=== PATIENT | female | born 1955 | race American Indian/Alaskan Native ===

== ENCOUNTER 2017-06-20 06:06 | Day surgery (SDC) | payer BC ==
[~2017-06-20 06:06] MED LIST: TETRACAINE 0.5% OD PRN
[2017-06-20] MEDS ORDERED: NACL BACTERIOSTATIC INFILTRATI ONE (06:18)
[2017-06-20] MEDS: MYDRIACYL OD SCH ×3 (06:45→06:55)
[2017-06-20] MEDS: VIGAMOX OD SCH ×3 (06:45→06:55)
[2017-06-20] MEDS: AK-Dilate OD SCH ×3 (06:45→06:55)
--- NOTE | 2017-06-20 07:08 | Anesthesia Consultation ---
Anesthesia Consult and Med Hx Date of service: 06/20/17 - Airway Anesthetic Teeth Evaluation: Good ROM Head & Neck: Adequate Mental/Hyoid Distance: Adequate Mallampati Class: Class I Intubation Access Assessment: Good - Pulmonary Exam CTA: Yes - Cardiac Exam Cardiac Exam: RRR - Pre-Operative Health Status ASA Pre-Surgery Classification: ASA3 Proposed Anesthetic Plan: MAC - Central Nervous System Hx Psychiatric Problems: No - Endocrine Hx Non-Insulin Dependent Diabetes: Yes - Other Systems Hx Alcohol Use: No Hx Substance Use: No Hx Cancer: No
--- NOTE | 2017-06-20 07:09 | Anesthesia Day of Surgery ---
Anesthesia Day of Surgery - Day of Surgery Patient Examined: Yes Patient H&P Reviewed: Yes Patient is NPO: Yes Beta Blockers: No
[2017-06-20] MEDS ORDERED: VERSED ONE (07:38)
[2017-06-20] MEDS ORDERED: PRED FORTE 1% ONE (07:43)
[2017-06-20] MEDS ORDERED: VISCOAT IO ONE ×3 (07:58→14:47)
[2017-06-20] MEDS ORDERED: ADRENALINE P/F IV ONE (08:08)
[2017-06-20] MEDS ORDERED: XYLOCAINE 1% MPF 5 mL IJ ONE (08:21)
[2017-06-20] MEDS ORDERED: MIOSTAT OD ONE (08:23)
--- NOTE | 2017-06-20 09:03 | Short Stay Summary ---
Short Stay Documentation Date of service: 06/20/17 - History H&P: obtained from office - Allergies and Medications Current Medications: Allergies No Known Allergies Allergy (Verified 06/17/17 13:22) Home Medications Medication Instructions Recorded Confirmed Last Taken Type Dulaglutide [Trulicity] 1 syr IM QWEEK 06/17/17 06/20/17 06/17/17 History Pioglitazone HCl 15 mg PO DAILY 06/17/17 06/20/17 06/19/17 History Active Medications Acetazolamide (Diamox) 500 mg PO BID ONE Stop: 06/20/17 09:01 Moxifloxacin HCl (Vigamox) 1 drops OD Q5MIN [facility] Stop: 06/22/17 06:01 Last Admin: 06/20/17 06:55 Dose: 1 drops Phenylephrine HCl (Ak-Dilate) 1 drops OD Q5MIN [facility] Stop: 06/22/17 06:01 Last Admin: 06/20/17 06:55 Dose: 1 drops Tetracaine HCl (Tetracaine 0.5%) 1 drops OD Q5M PRN PRN Reason: Analgesia Last Admin: 06/20/17 06:45 Dose: 1 drops Tropicamide (Mydriacyl) 1 drops OD Q5MIN [facility] Stop: 06/22/17 06:01 Last Admin: 06/20/17 06:55 Dose: 1 drops - Brief post op/procedure progress note Date of procedure: 06/20/17 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
[2017-06-20] MEDS ORDERED: DIAMOX PO ONE (09:30)
--- NOTE | 2017-06-20 09:39 | Operative Report ---
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 ANESTHESIA: Monitored anesthesia care in combination with topical and intracameral anesthesia because of the established specific risk of reflux, arrhythmias, or anxiety attacks associated with ocular manipulation, as well as the difficulty of the machine tool electrician to manage such potentially catastrophic events while simultaneously attempting to complete the surgical procedure and was deemed necessary for the patient's safety to have a Nurse Records Tech present during the procedure whenever possible. A Nurse Records Tech was utilized to regulate the intravenous sedation of the patient so the patient was cooperative yet not asleep in order for the patient to successfully maintain fixation of the eye on the operating light of the microscope. COMPLICATIONS: Posterior capsular rupture No blood loss. ALLERGIES: No known drug allergies PROGNOSIS: Excellent INDICATIONS FOR SURGERY: The patient is undergoing surgery in the hopes of eliminating or improving these visual difficulties. PROCEDURE: After arriving at the surgery center, the patient was given topical anesthetic and dilating drops, as noted in the record. The patient was then taken into the operating room and given more anesthetic drops. The eyelids , lashes, and lid margins were scrubbed with Betadine solution, and the patient was draped. The Nurse Records Tech administered IV sedation and monitored the patient during the procedure. A speculum was placed between the eyelids, and the patient was asked to fixate on the light of the microscope. The eye was then fixated with a round campuzano, which would damage the conjunctival tissues or vessel, and a stab incision was made in the peripheral clear cornea into the anterior chamber. This was made on my left side. Next through this incision, 1% nonpreserved Xylocaine was irrigated in to the eye to provide further anesthesia. Viscoelastic was next used to fill the anterior chamber. The eye was once again fixated with the round campuzano and a keratome was used make an incision in clear cornea peripherally on my right hand side temporally. Viscoat was first injected into the anterior chamber coating the posterior surface of the cornea. Provisc was then injected between the anterior capsule and the Viscoat. This pushed the Viscoat completely against the endothelium and into the angular area. The Provisc will come out as the phacoemulsification starts, but the Viscoat will remain in place during the procedure to protect the endothelium and the cornea. The capsule forceps were used to open the central anterior capsule and then make a continuous round capsulotomy. Hydrodissection was carried out utilizing a U-shaped cannula and balanced salt solution to delineate the cortical material from the capsule and the nucleus from the cortical material. The phaco tip was introduced into the eye and used to remove the anterior cortical material in the area of the capsulotomy. Then the phaco tip was buried into the nucleus, and a chopping instrument was introduced into the eye and used to provide countertraction in the nucleus between this instrument and the phaco tip fracturing the nucleus. This procedure was repeated multiple times, providing multiple small segments of the lens, and then the phaco tip was used to remove each of these segments. Due to a small pupil size, it was deemed necessary to dilate the pupil mechanically so that the surgery could be more safely and effectively carried out. A Malugyan ring was brought into the operative field and it was inserted into the keratome incision. The pupil remained dilated and the surgery was able to be carried out. Due to poor dilation, iris retractors were used to stretch the pupil into a more dilated position. S The anterior chamber was refilled with viscoelastic. An I/A tip was then used to remove the remaining cortex. Vitreous protruded through the pupil after removing the cataract. Therefore, a mechanical vitrectomy was indicated. An approach consistent with the surgery was performed utilizing a vitrectomy unit and a continuous infusion of balanced salt solution. The vitrectomy was performed carefully to avoid placing undue traction on the retina. As much vitreous was removed as possible with this approach. The vitreous base along the retinal surface, especially in the areas with scleral folds indenting towards the interior of the eye, was left intact. Vitreous was removed from the pupillary margin and cleaned off of the anterior surface of the iris. It was decided that instead of placing the lens in the capsular bag, the lens would be placed into the eye with the haptics anterior to the capsular bag and in the ciliary sulcus. Once it was determined that both haptics were properly positioned, the lens optic was pushed posteriorly to allow capture of the optic by the anterior capsulotomy. This capture provides better fixation and centration of the lens than placement in the sulcus alone. After placement of the intraocular lens, the I and A handpiece was placed back into the eye and used to remove the viscoelastic, including viscoelastic that was behind the optic of the intraocular lens. The anterior chamber was then filled with balanced salt solution, and hydration of the wound was used to cause swelling of the wound and more appropriate watertight closure. When the wound was found to be firm, the patient was asked to comment on how bright the light was. If there was no light perception at all or if the light was substantially dimmer than during the rest of the surgery, the amount of fluid in the eye was decompressed to lower the intraocular pressure until the patient could see the bright light again. This was done to avoid any damage or decreased blood flow to the optic nerve. In order to provide constriction of the pupil and improved vision, Carbachol was injected into the anterior chamber to constrict the pupil. MEDICATIONS APPLIED AT END OF SURGERY: Vigamox and pred forte The patient was given a shield to wear at night and was instructed not to rub or push on the eye. DISCHARGE SUMMARY: The patient was released in stable condition. The patient and those with the patient were given a written sheet of postoperative instructions and counseling on any abnormal laboratory studies. The patient is to see us tomorrow for follow-up in the office and is to call immediately for any difficulties. The patient was given prescriptions for Keflex, Pred Forte, Tylenol No. 3, and Zymar. Merna Dacosta M.D. Date
[2017-06-20] MEDS ORDERED: HumuLIN R IV ONE ×2 (09:45→10:40)
[2017-06-20] MEDS ORDERED: PRED FORTE 1% OD SCH (10:00)
[2017-06-20 10:10] VITALS: BP 165/76
[2017-06-20] MEDS ORDERED: XYLOCAINE MPF 1% INFILTRATI ONE (14:47)
[2017-06-20] MEDS ORDERED: ADRENALIN ONE (14:47)
[2017-06-20] MEDS ORDERED: MIOSTAT ONE (14:47)
== END 2017-06-20 06:07 | disposition home or self-care (01) ==
LOC: OR 06:06
DX: E11.36 Type 2 diabetes mellitus with diabetic cataract (principal); I10 Essential (primary) hypertension; Z91.040 Latex allergy status; Z79.84 Long term (current) use of oral hypoglycemic drugs
CPT/HCPCS: 66982; 67010; 82962; J0171; J2250; J1815; V2632

== ENCOUNTER 2017-07-04 06:40 | Day surgery (SDC) | payer BC ==
[~2017-07-04 06:40] MED LIST changes: -TETRACAINE 0.5% OD PRN; +TETRACAINE 0.5% OS SCH
[2017-07-04] MEDS: MYDRIACYL OS SCH ×3 (07:51→08:07)
[2017-07-04] MEDS: VIGAMOX OS SCH ×3 (07:51→08:07)
[2017-07-04] MEDS: AK-Dilate OS SCH ×3 (07:51→08:06)
--- NOTE | 2017-07-04 07:54 | Anesthesia Day of Surgery ---
Anesthesia Day of Surgery - Day of Surgery Patient Examined: Yes Patient H&P Reviewed: Yes Patient is NPO: Yes
--- NOTE | 2017-07-04 07:54 | Anesthesia Consultation ---
Anesthesia Consult and Med Hx Date of service: 07/04/17 - Airway Anesthetic Teeth Evaluation: Good ROM Head & Neck: Adequate Mental/Hyoid Distance: Adequate Mallampati Class: Class II Intubation Access Assessment: Probably Good - Pulmonary Exam CTA: Yes - Cardiac Exam Cardiac Exam: RRR - Pre-Operative Health Status ASA Pre-Surgery Classification: ASA2 Proposed Anesthetic Plan: MAC - Central Nervous System Hx Psychiatric Problems: No - Endocrine Hx Non-Insulin Dependent Diabetes: Yes - Other Systems Hx Alcohol Use: No Hx Substance Use: No Hx Cancer: No Hx Obesity: Yes - Additional Comments Anesthesia Medical History Comments: similar procedure performed on the other eye on 06/30. tolerated procedure and anesthesia well
[2017-07-04] MEDS ORDERED: VERSED ONE (08:47)
[2017-07-04] MEDS ORDERED: DIAMOX PO ONE (09:15)
--- NOTE | 2017-07-04 09:15 | Operative Report ---
Operative Report Operative Report: PATIENT'S NAME: DATE OF : DATE OF SURGERY: 07/04/2017 PREOPERATIVE DIAGNOSIS: Cataract left eye POSTOPERATIVE DIAGNOSIS: Same OPERATIVE PROCEDURE: Phacoemulsification with intraocular lens implantation, left eye SURGEON: Merna Dacosta M.D. INDIAN BLANKET WEAVER SURGEON: Aura Lens: [id number] 17.5 D ANESTHESIA: Monitored anesthesia care in combination with topical and intracameral anesthesia because of the established specific risk of reflux, arrhythmias, or anxiety attacks associated with ocular manipulation, as well as the difficulty of the bulk sealer operator to manage such potentially catastrophic events while simultaneously attempting to complete the surgical procedure and was deemed necessary for the patient's safety to have an Material Coordinator present during the procedure whenever possible. An Material Coordinator was utilized to regulate the intravenous sedation of the patient so the patient was cooperative yet not asleep in order for the patient to successfully maintain fixation of the eye on the operating light of the microscope. COMPLICATIONS: No surgical complications No blood loss. ALLERGIES: N known drug allergies PROGNOSIS: Excellent INDICATIONS FOR SURGERY: The patient is undergoing surgery in the hopes of eliminating or improving these visual difficulties. PROCEDURE: After arriving at the surgery center, the patient was given topical anesthetic and dilating drops, as noted in the record. The patient was then taken into the operating room and given more anesthetic drops. The eyelids , lashes, and lid margins were scrubbed with Betadine solution, and the patient was draped. The Nurse Material Coordinator administered IV sedation and monitored the patient during the procedure. The eye was then fixated with a 0.12, and a stab incision was made in the peripheral clear cornea into the anterior chamber. This was made on my left side. Viscoelastic was next used to fill the anterior chamber. The eye was once again fixated with the 0.12 forceps and a keratome was used make an incision in clear cornea peripherally on my right hand side temporally. The capsule forceps were used to open the central anterior capsule and then make a continuous round capsulotomy. Hydrodissection was carried out utilizing a cannula and balanced salt solution to delineate the cortical material from the capsule and the nucleus from the cortical material. The phaco tip was introduced into the eye and used to remove the anterior cortical material in the area of the capsulotomy. Then the phaco tip was buried into the nucleus, and a chopping instrument was introduced into the eye and used to provide countertraction in the nucleus between this instrument and the phaco tip fracturing the nucleus. This procedure was repeated multiple times, providing multiple small segments of the lens, and then the phaco tip was used to remove each of these segments. An I/A tip was then used to remove the remaining cortex. The anterior chamber was refilled with viscoelastic. An one-piece, acrylic intraocular lens was then placed into an inserting cartridge. The tip of the inserting cartridge was introduced into the keratome incision and into the anterior chamber. The implant was gently advanced through the cartridge and into the eye, where it unfolded, and both haptics were placed in the capsular bag, where it centered nicely and appeared to be well fixated. After placement of the intraocular lens, the I~and~A handpiece was placed back into the eye and used to remove the viscoelastic, including viscoelastic that was behind the optic of the intraocular lens. The anterior chamber was then filled with balanced salt solution, and hydration of the wound was used to cause swelling of the wound and more appropriate watertight closure. When the wound was found to be firm, the patient was asked to comment on how bright the light was. If there was no light perception at all or if the light was substantially dimmer than during the rest of the surgery, the amount of fluid in the eye was decompressed to lower the intraocular pressure until the patient could see the bright light again. This was done to avoid any damage or decreased blood flow to the optic nerve. MEDICATIONS APPLIED AT END OF SURGERY: One drop of Pred Forte and Vigamox The patient was given a shield to wear at night and was instructed not to rub or push on the eye. DISCHARGE SUMMARY: The patient was released in stable condition. The patient and those with the patient were given a written sheet of postoperative instructions and counseling on any abnormal laboratory studies. The patient is to see us tomorrow for follow-up in the office and is to call immediately for any difficulties. Merna Dacosta M.D. Date
--- NOTE | 2017-07-04 09:16 | Short Stay Summary ---
Short Stay Documentation Date of service: 07/04/17 - History H&P: obtained from office - Allergies and Medications Current Medications: Allergies No Known Allergies Allergy (Verified 07/02/17 10:23) Home Medications Medication Instructions Recorded Confirmed Last Taken Type Dulaglutide [Trulicity] 1 syr IM QWEEK 06/17/17 07/04/17 07/01/17 09:00 History Pioglitazone HCl 15 mg PO DAILY 06/17/17 07/04/17 07/03/17 09:00 History Active Medications Acetazolamide (Diamox) 500 mg PO BID ONE Stop: 07/04/17 09:16 Moxifloxacin HCl (Vigamox) 1 drops OS Q5MIN [facility] Stop: 07/04/17 15:00 Last Admin: 07/04/17 08:07 Dose: 1 drops Phenylephrine HCl (Ak-Dilate) 1 drops OS Q5MIN [facility] Stop: 07/04/17 15:00 Last Admin: 07/04/17 08:06 Dose: 1 drops Prednisolone Acetate (Pred Forte 1%) 1 drops OS QID [facility] Tetracaine HCl (Tetracaine 0.5%) 1 drops OS Q5M [facility] Stop: 07/04/17 15:00 Last Admin: 07/04/17 07:50 Dose: 1 drops Tropicamide (Mydriacyl) 1 drops OS Q5MIN [facility] Stop: 07/04/17 15:00 Last Admin: 07/04/17 08:07 Dose: 1 drops - Brief post op/procedure progress note Date of procedure: 07/04/17 Pre-op diagnosis: left cataract Post-op diagnosis: same Procedure: Phacoemulsification with intraocular lens insertion left eye Anesthesia: MAC, local Surgeon: FLORES VERDUGO Estimated blood loss: none Pathology: none Condition: stable - Disposition Condition at discharge: Good Disposition: DC-01 TO HOME OR SELFCARE - Discharge Diagnoses (1) Cataract Status: Acute Qualifiers: Cataract type: age-related Age-related cataract type: nuclear Laterality : left Qualified Code(s): H25.12 - Age-related nuclear cataract, left eye Short Stay Discharge Plan Follow up with: STEPHANE DUENAS MD [Primary Care Provider] - 7 Days
[2017-07-04] MEDS ORDERED: PRED FORTE 1% OS SCH (10:00)
[2017-07-04 10:38] VITALS: BP 133/71
== END 2017-07-04 10:10 | disposition home or self-care (01) ==
LOC: OR 06:40
DX: E11.36 Type 2 diabetes mellitus with diabetic cataract (principal); I10 Essential (primary) hypertension; Z79.899 Other long term (current) drug therapy
CPT/HCPCS: 66984; 82962; J2250; V2632